=== PATIENT | male | born 1995 | race Hispanic/Latino ===

== ENCOUNTER 2016-12-20 04:02 | Emergency (ER) | payer BC ==
[2016-12-20 04:14] VITALS: BP 112/67; PULSE 74; RESP 16; TEMP 98.1; O2SAT 99
[2016-12-20] MEDS ORDERED: Sodium Chloride 0.9% 1,000 ML IV STA ×2 (04:18→05:08)
--- NOTE | 2016-12-20 04:20 | ED PDOC ---
HPI: Psych/Substance Abuse Time Seen by Provider: 12/20/16 04:14 Chief Complaint (Nursing): Alcohol Ingestion Chief Complaint (Provider): ETOH intoxication History Per: Patient Additional Complaint(s): 21 yo male, no PMH, presents to ED with his mother and girlfriend for evaluation of vomiting s/p ETOH consumption. Pt's girlfriend reports he was drinking beer and whisky earlier in the night. Past Medical History Reviewed: Nursing Documentation, Vital Signs Vital Signs: Last Vital Signs Temp 98.1 F 12/20/16 04:08 Pulse 74 12/20/16 04:08 Resp 16 12/20/16 04:08 BP 112/67 12/20/16 04:08 Pulse Ox 99 12/20/16 04:08 - Medical History PMH: No Chronic Diseases - Surgical History Surgical History: No Surg Hx - Family History Family History: States: No Known Family Hx - Living Arrangements Living Arrangements: With Family - Social History Current smoker - smoking cessation education provided: No Alcohol: Social Drugs: Denies - Allergies Allergies/Adverse Reactions: Allergies Allergy/AdvReac Type Severity Reaction Status Date / Time No Known Allergies Allergy Verified 12/20/16 04:08 Review of Systems ROS Statement: Except As Marked, All Systems Reviewed And Found Negative Gastrointestinal: Positive for: Nausea, Vomiting Physical Exam - Reviewed Nursing Documentation Reviewed: Yes Vital Signs Reviewed: Yes - Physical Exam Appears: Positive for: Well, Non-toxic, No Acute Distress Head Exam: Positive for: ATRAUMATIC, NORMAL INSPECTION, NORMOCEPHALIC Skin: Positive for: Normal Color, Warm, DRY Eye Exam: Positive for: EOMI, Normal appearance, PERRL ENT: Positive for: Normal ENT Inspection Neck: Positive for: Normal, Painless ROM Cardiovascular/Chest: Positive for: Regular Rate, Rhythm Respiratory: Positive for: CNT, Normal Breath Sounds Gastrointestinal/Abdominal: Positive for: Normal Exam, Bowel Sounds, Soft. Negative for: Tenderness Back: Positive for: Normal Inspection Extremity: Positive for: Normal ROM Neurologic/Psych: Positive for: Alert, Oriented - Laboratory Results Result Diagrams: 12/20/16 04:25 12/20/16 04:25 - ECG O2 Sat by Pulse Oximetry: 99 Medical Decision Making Medical Decision Making: Pt retching in ED room. IV access established and treatment initiated with IVF and Zofran. Diagnostics ordered. CBC resulted with WBC 12.1 COMP resulted WNL Alcohol 166 Pt asleep on re-eval, vitals remain stable. French Instructor at bedside and repeorts that she is comfortable to take him home. Pt stable for discharge Disposition - Clinical Impression Clinical Impression: Alcohol ingestion - Patient ED Disposition Is Patient to be Admitted: No - Disposition Disposition: Routine/Home Disposition Time: 05:56 Condition: STABLE Instructions: Alcohol Intoxication (ED) - POA Present On Arrival: None
[2016-12-20 04:42] LABS: BASO # 0.1 K/uL (0.0-0.2); BASO % 0.6 % (0.0-2.0); EOS % 0.4 % (0.0-4.0); HEMATOCRIT 46.2 % (35.0-51.0); LYMPH # 1.8 K/uL (1.0-4.3); LYMPH % 15.2 % (20.0-40.0); MEAN CELL VOLUME 91.9 fl (80.0-94.0); MEAN CORPUSCULAR HEMOGLOBIN 31.4 pg (27.0-31.0); MEAN CORPUSCULAR HGB CONC 34.1 g/dL (33.0-37.0); MEAN PLATELET VOLUME 8.1 fl (7.2-11.7); MONO # 0.5 K/uL (0.0-0.8); MONO % 4.2 % (0.0-10.0); NEUT # 9.7 K/uL (1.8-7.0); NEUT % 79.6 % (50.0-75.0); NRBC % 0.1 % (0.0-0.0); RED CELL DISTRIBUTION WIDTH 12.8 % (11.5-14.5); WHITE BLOOD COUNT 12.1 K/uL (4.8-10.8)
[2016-12-20 04:54] LABS: ALB/GLOB RATIO 1.7 (1.0-2.1); ALCOHOL SERUM 166 mg/dl (0-10); ALKALINE PHOSPHATASE 58 U/L (38-126); ALT/SGPT 29 U/L (21-72); AST/SGOT 26 U/L (17-59); BILIRUBIN,TOTAL 0.3 mg/dl (0.2-1.3); BLOOD UREA NITROGEN 16 mg/dl (9-20); CALCIUM 9.8 mg/dL (8.4-10.2); CARBON DIOXIDE 21 mmol/L (22-30); CHLORIDE 109 mmol/L (98-107); GFR AFRICAN-AMERICAN > 60; GLUCOSE,RANDOM 108 mg/dL (75-110); POTASSIUM 4.3 MMOL/L (3.6-5.0); SODIUM 146 mmol/l (132-148); TOTAL PROTEIN 7.8 G/DL (6.3-8.2)
== END 2016-12-20 06:11 | disposition home or self-care (01) ==
LOC: H.ER 04:02
DX: F10.10 Alcohol abuse, uncomplicated (principal)
CPT/HCPCS: 80053; 85025; 96361; 96374; 99282; G0480; J2405; J7040